=== PATIENT | female | born 1995 | race Caucasian/White ===

== ENCOUNTER 2018-07-05 10:59 | Emergency (ER) | payer OTHER ==
[~2018-07-05] VITALS: Ht 152.4 cm; Wt 54.4 kg
[2018-07-05] MEDS ORDERED: PRENATABS RX T1 EACH (11:22)
== END 2018-07-05 15:38 | disposition home or self-care (01) ==
LOC: ER 10:59
DX: O26.891 Other specified pregnancy related conditions, first trimester (principal); R10.2 Pelvic and perineal pain; Z34.01 Encounter for supervision of normal first pregnancy, first trimester

== ENCOUNTER 2018-10-14 11:44 | Outpatient (CLI) | payer OTHER ==
[~2018-10-14 11:44] MED LIST: PRENATABS RX T1 EACH
== END 2018-10-14 12:12 | disposition home or self-care (01) ==
LOC: SONOGRAMA 11:44
DX: Z34.00 Encounter for supervision of normal first pregnancy, unspecified trimester (principal)

== ENCOUNTER 2019-01-06 14:13 | Inpatient (IN) | payer OTHER ==
[~2019-01-06] VITALS: Ht 154.9 cm; Wt 75.7 kg
== END 2019-02-01 16:20 | disposition home or self-care (01) | DRG 807 ==
LOC: OB/GYN 01-30 05:53 → LDR 01-30 05:53 → OB/GYN 01-30 15:32
PROVIDERS: ADMIT Specialist
PROC: 10E0XZZ Delivery of Products of Conception, External Approach (ICD-10-PCS; principal; 2019-01-30)
PROC: 0W8NXZZ Division of Female Perineum, External Approach (ICD-10-PCS; 2019-01-30)
PROC: 4A1HXCZ Monitoring of Products of Conception, Cardiac Rate, External Approach (ICD-10-PCS; 2019-01-30)
DX: O80 Encounter for full-term uncomplicated delivery (principal); Z37.0 Single live birth; Z22.330 Carrier of Group B streptococcus; Z3A.40 40 weeks gestation of pregnancy

== ENCOUNTER 2019-01-25 19:33 | Outpatient (CLI) | payer OTHER | END 2019-01-26 12:50 | disposition home or self-care (01) | LOC: OBS/DEL 19:33 | DX: O76 Abnormality in fetal heart rate and rhythm complicating labor and delivery (principal); O35.8XX0 Maternal care for other (suspected) fetal abnormality and damage, not applicable or unspecified; O26.892 Other specified pregnancy related conditions, second trimester; R10.2 Pelvic and perineal pain ==

== ENCOUNTER → 2020-03-09 | Outpatient (CLI) | payer OTHER | END | disposition home or self-care (01) | LOC: PRENATAL 11:00 | PROVIDERS: ATTEND Obstetrics & Gynecology Maternal & Fetal Medicine | DX: O35.0XX1 Maternal care for (suspected) central nervous system malformation in fetus, fetus 1 (principal); O35.3XX1 Maternal care for (suspected) damage to fetus from viral disease in mother, fetus 1; O98.512 Other viral diseases complicating pregnancy, second trimester; O26.852 Spotting complicating pregnancy, second trimester; Z36.89 Encounter for other specified antenatal screening; Z3A.18 18 weeks gestation of pregnancy ==

== ENCOUNTER → 2020-04-08 | Outpatient (CLI) | payer OTHER | END | disposition home or self-care (01) | LOC: PRENATAL 15:21 | PROVIDERS: ATTEND Obstetrics & Gynecology Maternal & Fetal Medicine | DX: O26.842 Uterine size-date discrepancy, second trimester (principal); O26.872 Cervical shortening, second trimester; Z36.89 Encounter for other specified antenatal screening; Z3A.22 22 weeks gestation of pregnancy ==

== ENCOUNTER 2020-07-19 14:15 | Inpatient (IN) | payer OTHER ==
[~2020-07-19] VITALS: Ht 154.9 cm; Wt 71.2 kg
== END 2020-07-29 14:13 | disposition home or self-care (01) | DRG 807 ==
LOC: OB/GYN 07-27 03:32 → LDR 07-27 03:32 → OB/GYN 07-27 13:59
PROVIDERS: ADMIT Specialist; ATTEND Specialist
PROC: 10E0XZZ Delivery of Products of Conception, External Approach (ICD-10-PCS; principal; 2020-07-27)
PROC: 10907ZC Drainage of Amniotic Fluid, Therapeutic from Products of Conception, Via Natural or Artificial Opening (ICD-10-PCS; 2020-07-27)
PROC: 0W8NXZZ Division of Female Perineum, External Approach (ICD-10-PCS; 2020-07-27)
PROC: 4A1HXFZ Monitoring of Products of Conception, Cardiac Rhythm, External Approach (ICD-10-PCS; 2020-07-27)
DX: O80 Encounter for full-term uncomplicated delivery (principal); Z37.0 Single live birth; Z3A.38 38 weeks gestation of pregnancy; Z20.822 Contact with and (suspected) exposure to COVID-19